=== PATIENT | female | born 1980 | race Caucasian/White ===

== ENCOUNTER 2016-08-28 15:54 | Inpatient (IN) | payer MEDICAID ==
--- NOTE | 2016-08-28 16:12 | CPEKG ---
Heart Rate: 94 RR Interval: 638 P-R Interval: 164 QRSD Interval: 68 QT Interval: 328 QTC Interval: 411 P [place]: 45 QRS [place]: -23 T Wave [place]: -5 EKG Severity - BORDERLINE ECG - EKG Impression: SINUS RHYTHM EKG Impression: BORDERLINE LEFT AXIS DEVIATION EKG Impression: INFERIOR Q WAVES, PROBABLY NORMAL VARIATION Electronically Signed By: Noemi Marie 29-Aug-2016 00:43:38
[2016-08-28] MEDS ORDERED: NS 500 ML IV ONE (16:29)
[2016-08-28] MEDS ORDERED: ALBUTEROL 3 ML DEYVIAL IH ONE (16:35)
[2016-08-28 16:43] LABS: % IMMATURE GRANULYOCYTES 0.3 % (0.0-1.1); ABSOLUTE IMMATURE GRANULOCYTES 0.02 10^3/uL (0.00-0.10); ADD DIFF? NO; ADD MORPH? NO; ADD SCAN? NO; ATYPICAL LYMPHOCYTE FLAG 10 (0-99); FRAGMENT RBC FLAG 0 (0-99); HEMATOCRIT 45.4 % (38.0-47.0); HEMOGLOBIN 15.1 g/dL (12.6-16.3); LEFT SHIFT FLG 0 (0-99); LIPEMIA HEMOLYSIS FLAG 80 (0-99); MEAN CELL HEMOGLOBIN 30.6 pg (27.9-34.1); MEAN CELL HEMOGLOBIN CONCENTR. 33.3 g/dL (32.4-36.7); MEAN CELL VOLUME 91.9 fL (81.5-99.8); MEAN PLATELET VOLUME 10.9 fL (8.7-11.7); PLATELET CLUMPS FLAG 0 (0-99); PLATELET COUNT 219 10^3/uL (150-400); RED BLOOD CELL COUNT 4.94 10^6/uL (4.18-5.33); RED CELL DISTRIBUTION WIDTH 12.3 % (11.5-15.2)
--- NOTE | 2016-08-28 16:52 | EDPHY ---
H & P Stated Complaint: started on clindamycin for tooth inf/r cp and hurts to swallow Time Seen by Provider: 08/28/16 16:02 HPI/ROS: CHIEF COMPLAINT: Chest discomfort HISTORY OF PRESENT ILLNESS: This is a 36-year-old female who reports that she has had persistent left-sided chest discomfort for the last 5 days. She states she had 2 teeth pulled 5 days ago and approximately 2 hours later, after taking her 1st dose of clindamycin, she developed right-sided chest discomfort. She describes it as a severe sharp stabbing pain. Hurts to take a deep breath. Hurts to swallow. She has had no fevers or chills. No cold, cough, nausea, vomiting. She does not feel short of breath. Pain does not radiate. Not made worse with exertion. No history of reflux or GERD. She did take some Maalox and Mylanta thinking this might be GI related with no improvement. No diabetes, hypertension, hypercholesterolemia. REVIEW OF SYSTEMS: Aside from elements discussed in the HPI, a comprehensive 10-point review of systems was reviewed and is negative. 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 The remote history of asthma. SOCIAL HISTORY: She is a smoker, half pack per day. VITAL SIGNS Reviewed by me. GENERAL: Overweight, pleasant, no respiratory distress. HEENT: Atraumatic. Eyes: No icterus, no injection. Mouth: Healing extraction site in the left upper jaw and right lower jaw. Moist mucous membranes. No erythema or lesions. Neck: supple with no adenopathy. LUNGS: Diminished breath sounds bilaterally. No wheezes, rhonchi or rales. CHEST: Area of tenderness to the right of the sternum. No rash. No crepitus. CARDIAC: Regular rate and rhythm, no rubs, murmurs or gallops. ABDOMEN: Soft, nontender, nondistended, bowel sounds normal. BACK: No CVA tenderness. EXTREMITIES: No trauma. No edema. Range of motion is normal throughout. NEURO: Alert and oriented, grossly nonfocal. SKIN: Warm and dry, no rash. PSYCHIATRIC: Normal mentation, no agitation. - Personal History LMP (Females 10-55): IUD In Place Current Tetanus/Diphtheria Vaccine: Yes - Medical/Surgical History Hx Asthma: Yes Hx Chronic Respiratory Disease: No Hx Diabetes: No Hx Cardiac Disease: No Hx Renal Disease: No Hx Cirrhosis: No Hx Alcoholism: No Hx HIV/AIDS: No Hx Splenectomy or Spleen Trauma: No Other PMH: migraines, kidney stones, hypothyroid,chronic back pain,questionable ols [place]'s - Social History Smoking Status: Current every day smoker Constitutional: Initial Vital Signs Temperature (C) 36.8 C 08/28/16 15:58 Heart Rate 97 08/28/16 15:58 Respiratory Rate 16 08/28/16 15:58 Blood Pressure 130/100 H 08/28/16 15:58 O2 Sat (%) 94 08/28/16 15:58 O2 Delivery Mode Nasal Cannula O2 (L/minute) 2 Allergies/Adverse Reactions: meperidine HCl [From Demerol] Allergy (Verified 08/28/16 15:56) naproxen Allergy (Verified 08/28/16 15:57) Home Medications: Medication Instructions Recorded Clindamycin 150 mg PO QID 08/28/16 Ibuprofen [Motrin (*)] 600 mg PO QID PRN 08/28/16 oxyCODONE/APAP 5/325 [Percocet 1 tab PO Q4 PRN 08/28/16 5/325 (*)] Medical Decision Making - Diagnostics EKG Interpretation: 12-LEAD EKG: Please see the full report in [facility]. My interpretation: Sinus rhythm, Q-waves inferiorly 3 and AVF. QRS complex across the precordium V1 to V3. No acute ischemic changes. Imaging: Imaging Impressions Chest X-Ray 08/28/16 16:29 Impression: Mild bronchitis. No other findings for acute cardiopulmonary abnormality. Chest/Thorax CTA 08/28/16 17:37 Impression: 1. No evidence of thrombopulmonary embolic disease. 2. Minimal bronchitis. Results called and discussed with Noemi Marie MD at 08/28/2016 18:52. ED Course/Re-evaluation: 36-year-old female presenting with chest discomfort which started 5 days ago. Pain is well localized to the right side of her chest. No radiation. No shortness of breath. Began after starting and clindamycin following a dental procedure. Evaluation in the emergency department demonstrated a negative troponin and minimally elevated D-dimer. EKG has no acute ischemic changes but does have a Q wave in the 3 and inverted T-wave in lead 3. Patient is allergic to Naprosyn, so Toradol was not administered. She did receive the prednisone as an anti-inflammatory. Patient received nebulizer treatment for diminished breath sounds. The patient reports little improvement with the albuterol neb, and no improvement with the morphine. She did receive Dilaudid. Chest x-ray independently reviewed by myself demonstrates no pneumonia, consistent with possible mild bronchitis. CT scan of the chest for pulmonary embolism was ordered. I discussed results with the radiologist and independently reviewed the images. No pulmonary embolism, no signs of inflammation in the mediastinum, no for explanation for the patient's pain. I discussed these results with the patient. She tells me her pain is worsening. She was given Motrin by mouth and a GI cocktail. Patient was again re-examined. She continues to report severe discomfort in the right anterior chest. There is no rash. She is also reporting that the pain is radiating into her right arm. She reports the GI cocktail helped her discomfort for 5 minutes but then it returned. Patient will be admitted for observation of her ongoing discomfort, serial troponins, and re-evaluation and treatment as needed. Course was discussed with Dr. Magdalena Callaway. Differential Diagnosis: After history and physical examination, the differential for chest pain was considered, including but not limited to, myocardial ischemia, acute coronary syndrome, pulmonary embolus, chest wall pain, pleural inflammation and pulmonary infectious causes. Consult/Admit Bed Type: Dr. Magdalena Callaway, [facility] - Data Points Laboratory Results: Laboratory Results 08/28/16 16:17 08/28/16 16:17 08/28/16 08/28/16 08/28/16 16:17 16:17 16:17 WBC RBC Hgb Hct MCV MCH MCHC RDW Plt Count MPV Neut % (Auto) Lymph % (Auto) [place] % (Auto) Eos % (Auto) Baso % (Auto) Nucleat RBC Rel Count Absolute Neuts (auto) Absolute Lymphs (auto) Absolute Monos (auto) Absolute Eos (auto) Absolute Basos (auto) Absolute Nucleated RBC Immature Gran % Immature Gran # D-Dimer 0.56 ug/mLFEU H ug/mLFEU (0.00-0.50) Sodium Potassium Chloride Carbon Dioxide Anion Gap BUN Creatinine Estimated GFR Glucose Hemoglobin A1c 5.9 % % (4.0-6.0) Estim Average Glucose 123 mg/dL mg/dL (68-126) Calcium Total Bilirubin Conjugated Bilirubin Unconjugated Bilirubin AST ALT Alkaline Phosphatase Troponin I Total Protein Albumin Triglycerides 142 mg/dL H mg/dL (35-135) Cholesterol 183 mg/dL mg/dL (140-200) Cholesterol Risk Factr 0.8 (0.2-1.0) LDL Cholesterol, Calc 105 mg/dL H mg/dL (70-100) LDL Risk Factor 0.8 (0.2-1.0) VLDL Cholesterol 28 mg/dL H mg/dL (8-25) Non-HDL Cholesterol 133 mg/dL H mg/dL (90-129) HDL Cholesterol 50 mg/dL mg/dL (40-80) LDL/HDL Ratio 2.10 RATIO RATIO (1.00-3.22) Cholesterol/HDL Ratio 3.66 RATIO RATIO (1.00-4.44) Lipase Beta HCG, Qual 08/28/16 08/28/16 08/28/16 16:17 16:17 16:17 WBC 7.68 10^3/uL 10^3/uL (3.80-9.50) RBC 4.94 10^6/uL 10^6/uL (4.18-5.33) Hgb 15.1 g/dL g/dL (12.6-16.3) Hct 45.4 % % (38.0-47.0) MCV 91.9 fL fL (81.5-99.8) MCH 30.6 pg pg (27.9-34.1) MCHC 33.3 g/dL g/dL (32.4-36.7) RDW 12.3 % % (11.5-15.2) Plt Count 219 10^3/uL 10^3/uL (150-400) MPV 10.9 fL fL (8.7-11.7) Neut % (Auto) 63.6 % % (39.3-74.2) Lymph % (Auto) 27.6 % % (15.0-45.0) [place] % (Auto) 6.5 % % (4.5-13.0) Eos % (Auto) 1.6 % % (0.6-7.6) Baso % (Auto) 0.4 % % (0.3-1.7) Nucleat RBC Rel Count 0.0 % % (0.0-0.2) Absolute Neuts (auto) 4.89 10^3/uL 10^3/uL (1.70-6.50) Absolute Lymphs (auto) 2.12 10^3/uL 10^3/uL (1.00-3.00) Absolute Monos (auto) 0.50 10^3/uL 10^3/uL (0.30-0.80) Absolute Eos (auto) 0.12 10^3/uL 10^3/uL (0.03-0.40) Absolute Basos (auto) 0.03 10^3/uL 10^3/uL (0.02-0.10) Absolute Nucleated RBC 0.00 10^3/uL 10^3/uL (0-0.01) Immature Gran % 0.3 % % (0.0-1.1) Immature Gran # 0.02 10^3/uL 10^3/uL (0.00-0.10) D-Dimer Sodium 139 mEq/L mEq/L (134-144) Potassium 4.1 mEq/L mEq/L (3.5-5.2) Chloride 100 mEq/L mEq/L (97-110) Carbon Dioxide 30 mEq/l mEq/l (22-31) Anion Gap 9 mEq/L mEq/L (8-16) BUN 12 mg/dL mg/dL (7-23) Creatinine 0.8 mg/dL mg/dL (0.6-1.0) Estimated GFR > 60 Glucose 127 mg/dL H mg/dL (70-100) Hemoglobin A1c Estim Average Glucose Calcium 9.3 mg/dL mg/dL (8.5-10.4) Total Bilirubin 0.5 mg/dL mg/dL (0.1-1.4) Conjugated Bilirubin 0.4 mg/dL mg/dL (0.0-0.5) Unconjugated Bilirubin 0.1 mg/dL mg/dL (0.0-1.1) AST 31 IU/L IU/L (14-46) ALT 48 IU/L IU/L (9-52) Alkaline Phosphatase 155 IU/L H IU/L (38-126) Troponin I < 0.012 ng/mL ng/mL (0-0.034) Total Protein 7.3 g/dL g/dL (6.3-8.2) Albumin 4.2 g/dL g/dL (3.5-5.0) Triglycerides Cholesterol Cholesterol Risk Factr LDL Cholesterol, Calc LDL Risk Factor VLDL Cholesterol Non-HDL Cholesterol HDL Cholesterol LDL/HDL Ratio Cholesterol/HDL Ratio Lipase 82.0 IU/L IU/L (23-300) Beta HCG, Qual NEGATIVE Medications Given: Discontinued Medications Al Hydroxide/Mg Hydroxide (Maalox Susp) 30 ml PO ONCE ONE Stop: 08/28/16 19:17 Last Admin: 08/28/16 19:34 Dose: 30 ml Albuterol (Proventil Neb) 3 ml IH EDNOW ONE Stop: 08/28/16 16:36 Last Admin: 08/28/16 16:59 Dose: 3 ml Hydromorphone HCl (Dilaudid) 1 mg IVP EDNOW ONE Stop: 08/28/16 17:21 Last Admin: 08/28/16 17:15 Dose: 1 mg Hydromorphone HCl (Dilaudid) 1 mg IVP EDNOW ONE Stop: 08/28/16 18:13 Last Admin: 08/28/16 18:12 Dose: 1 mg Hyoscyamine Sulfate (Levsin, Hyomax-Sl) 0.25 mg PO ONCE ONE Stop: 08/28/16 19:17 Last Admin: 08/28/16 19:34 Dose: 0.25 mg Sodium Chloride (Ns) 500 mls @ 0 mls/hr IV ONCE ONE PRN Reason: As Directed Stop: 08/28/16 16:30 Last Admin: 08/28/16 16:59 Dose: 500 mls Ibuprofen (Motrin) 600 mg PO EDNOW ONE Stop: 08/28/16 20:35 Last Admin: 08/28/16 20:58 Dose: 600 mg Lidocaine (Lidocaine 2% Viscous) 15 ml PO ONCE ONE Stop: 08/28/16 19:17 Last Admin: 08/28/16 19:34 Dose: 15 ml Morphine Sulfate (Morphine) 4 mg IVP EDNOW ONE Stop: 08/28/16 16:30 Last Admin: 08/28/16 16:59 Dose: 4 mg Pantoprazole Sodium (Protonix) 40 mg PO EDNOW ONE Stop: 08/28/16 19:17 Last Admin: 08/28/16 19:34 Dose: 40 mg Prednisone (Prednisone) 60 mg PO EDNOW ONE Stop: 08/28/16 17:12 Last Admin: 08/28/16 17:25 Dose: 60 mg Departure - Departure Disposition: [facility] Inpatient Acute Clinical Impression: Chest pain Qualifiers: Chest pain type: unspecified Qualified Code(s): R07.9 - Chest pain, unspecified Condition: Good
[2016-08-28 17:00] LABS: ALANINE AMINOTRANSFERASE 48 IU/L (9-52); ALBUMIN 4.2 g/dL (3.5-5.0); ALKALINE PHOSPHATASE 155 IU/L (38-126); ANION GAP 9 mEq/L (8-16); ASPARTATE AMINOTRANSFERASE 31 IU/L (14-46); BILIRUBIN,TOTAL 0.5 mg/dL (0.1-1.4); BILIRUBIN-CONJUGATED 0.4 mg/dL (0.0-0.5); BILIRUBIN-UNCONJUGATED 0.1 mg/dL (0.0-1.1); CALCIUM 9.3 mg/dL (8.5-10.4); CARBON DIOXIDE 30 mEq/l (22-31); CHLORIDE 100 mEq/L (97-110); CREATININE 0.8 mg/dL (0.6-1.0); GLOMERULAR FILTRATION RATE > 60; GLUCOSE 127 mg/dL (70-100); POTASSIUM 4.1 mEq/L (3.5-5.2); SODIUM 139 mEq/L (134-144); TOTAL PROTEIN 7.3 g/dL (6.3-8.2)
[2016-08-28] MEDS ORDERED: predniSONE 20 MG TAB PO ONE (17:11)
[2016-08-28 17:13] LABS: TROPONIN I < 0.012 ng/mL (0-0.034)
[2016-08-28] MEDS ORDERED: HYDROmorphONE/DILAUDID 1 MG/ML SYR ONE (17:16)
[2016-08-28] MEDS ORDERED: HYDROmorphONE/DILAUDID 1 MG/ML SYR IVP ONE ×2 (17:20→18:12)
[2016-08-28] MEDS ORDERED: IOPAMIDOL (ISOVUE 370) 100 ML BTL IV ONE (18:07)
[2016-08-28] MEDS ORDERED: MAG HYDROX/AL HYDROX/SIMETH 30 ML UDCUP PO ONE (19:16)
[2016-08-28] MEDS ORDERED: PANTOPRAZOLE SODIUM 40 MG TAB PO ONE (19:16)
[2016-08-28] MEDS ORDERED: LIDOCAINE 2% VISCOUS 15 ML UDCUP PO ONE (19:16)
[2016-08-28] MEDS ORDERED: HYOSCYAMINE SULFATE 0.125 MG TAB PO ONE (19:16)
[2016-08-28] MEDS ORDERED: IBUPROFEN 600 MG TAB PO ONE (20:34)
[2016-08-28] MEDS ORDERED: ONDANSETRON DISINTEGRATING 4 MG TAB PO PRN (21:50)
[2016-08-28] MEDS ORDERED: LORazepam 2 MG/ML INJ IVP PRN (21:50)
[2016-08-28] MEDS ORDERED: ALBUTEROL 3 ML DEYVIAL IH PRN (21:50)
[2016-08-28] MEDS ORDERED: HYDROmorphONE/DILAUDID 1 MG/ML SYR IVP PRN (21:50)
[2016-08-28] MEDS ORDERED: NITROGLYCERIN 0.4 MG BTL SL PRN (21:50)
[2016-08-28] MEDS ORDERED: ACETAMINOPHEN 325 MG TAB PO PRN (21:50)
[2016-08-28] MEDS ORDERED: ONDANSETRON 4 MG/2 ML VIAL IVP PRN (21:50)
[2016-08-28] MEDS ORDERED: IBUPROFEN 600 MG TAB PO PRN (21:53)
[2016-08-28] MEDS ORDERED: OXYCODONE/APAP 5/325 TAB PO PRN (21:53)
--- NOTE | 2016-08-28 22:40 | GHP ---
[f rep st] HISTORY AND PHYSICAL DATE OF ADMISSION: 08/28/2016 CHIEF COMPLAINT: Chest pain. HISTORY: This is a 36-year-old, morbidly obese female, who presents with chest pain that has been p resent for approximately 4 days. She notes that she had 2 teeth pulled last week and was placed on clindamycin for a dental infection associated with needing to pull these teeth, and shortly thereaft er developed substernal to slightly right-sided chest pain. She notes it has been present, essentia lly nonstop since Wednesday, but has significantly worsened over the last 24 hours. She notes the pain was initially intermittent, but has now become constant. She states it is severe and sharp. She h as never had similar symptoms in the past. It is not pleuritic in nature. It is not positional. I t does not seem to be associated with eating or drinking. She has not noted anything that is able t o make it better, including morphine and Dilaudid she was given in the emergency department. She jacobson s never had similar symptoms in the past, though she does admit that she has been seen previously in different ERs for chest pain. She does have some associated pain in her right arm as well, but gulshan t seems to have gone away for the most part. PAST MEDICAL HISTORY: 1. Morbid obesity. 2. Chronic back pain. 3. Migraine headaches. 4. Kidney stones. 5. Reactive airway disease. 6. Some sort of peripheral neuropathy that she states has been worked up for various things, such a s MS and Kt disease, but testing has been negative. PAST SURGICAL HISTORY: Includes: 1. x2. 2. Tonsillectomy. FAMILY HISTORY: She has 2 great-grandfathers who have had heart disease and a grandfather of c ancer. Otherwise, diabetes and high blood pressure run in the family. SOCIAL HISTORY: Patient is a current daily smoker. She works in home care. She has 2 children. S he denies significant alcohol use and no drug use. REVIEW OF SYSTEMS: 10-point review of systems obtained, negative except as per HPI. MEDICATIONS: Include: 1. Ibuprofen. 2. Percocet. 3. Clindamycin. ALLERGIES: Include: 1. Meperidine. 2. Naproxen. PHYSICAL EXAMINATION: VITAL SIGNS: BP 110/62, heart rate 94, respiratory rate 18, O2 sats 98% on r oom air, temperature is 37.1. GENERAL APPEARANCE: This is a morbidly obese, female. She is awake and alert. She is in no acute distress. EYES: Anicteric. HEENT: Oropharynx clear. CA RDIOVASCULAR: RRR, no MRG. PULMONARY: CTA bilaterally, normal work of breathing. ABDOMEN: Soft, nontender, nondistended. EXTREMITIES: No clubbing, cyanosis, or edema. SKIN: Warm, dry. Well p erfused. NEURO/PSYCH: Oriented and appropriate, pleasant. CLINICAL DATA: Labs reviewed and are remarkable for a D-dimer of 0.56, glucose of 127. Troponins n egative. Chest x-ray reviewed and interpreted independently by myself shows mild bronchitis without other acu te abnormalities. Chest/thorax CT angiogram shows no PE and minimal bronchitis. EKG reviewed and interpreted independently by myself showing sinus rhythm, borderline left axis marty ation, and inferior Q-waves. ASSESSMENT/PLAN: This is a 36-year-old female, presenting with chest pain that is atypical and has been present for 5 days. 1. Chest pain. Again, this is atypical right-sided chest pain, present for 4-5 days with negative troponin x2. Pain continues despite aggressive management in the emergency department. At this poi nt, plan will be for overnight observation, monitoring on telemetry with serial EKGs and troponins, and a stress test in the morning. Other potential etiologies include musculoskeletal versus gastroe sophageal reflux disease, but she did not respond to GI cocktail or antiinflammatories. She has bee n given an aspirin. She will have a lipid panel and A1c checked for the risk stratification. 2. Morbid obesity. Recommending lifestyle changes. She has been working with her primary care vianca keen to get her weight under better control. 3. Hyperglycemia. We will check hemoglobin A1c. Her last glucose check 1 year ago was within norm al limits. 4. Hypertension. The patient's blood pressure has been mildly elevated since arrival, but this is in the setting of acute pain and suspect this is related to the same. We will monitor for now. 5. Reactive airway disease without evidence of acute exacerbation. We will monitor and give p.r.n. albuterol. 6. Observation status. I suspect she will need less than a 48-hour stay for evaluation and managem ent of above. 7. Patient is new to my care. Old records reviewed and summarized as per HPI and Past Medical Hist ory. Care plan reviewed with ER physician, including plans for stress test in the morning. /[id number]/MODL
[2016-08-28 22:57] LABS: HEMOGLOBIN A1C 5.9 % (4.0-6.0)
[2016-08-28 23:02] LABS: CHOLESTEROL 183 mg/dL (140-200); CHOLESTEROL/HDL RATIO 3.66 RATIO (1.00-4.44); HIGH DENSITY LIPOPROTEIN 50 mg/dL (40-80); LOW DENSITY LIPOPROTEIN 105 mg/dL (70-100); NON-HIGH DENSITY LIPOPROTEIN 133 mg/dL (90-129); TRIGLYCERIDE 142 mg/dL (35-135); VERY LOW DENSITY LIPOPROTEINS 28 mg/dL (8-25)
[2016-08-28] MEDS: AMOXICILLIN/CLAVULANATE POT 875/125 MG TAB PO SCH (23:08)
[2016-08-28] MEDS: oxyCODONE IR 5 MG TAB PO PRN (23:09)
[2016-08-28] MEDS: ZOLPIDEM TARTRATE 5 MG TAB PO PRN (23:09)
[2016-08-29] MEDS: LORazepam 0.5 MG TAB PO PRN ×3 (01:07→19:31)
--- NOTE | 2016-08-29 08:21 | CPEKG ---
Heart Rate: 84 RR Interval: 714 P-R Interval: 164 QRSD Interval: 78 QT Interval: 376 QTC Interval: 445 P [place]: 53 QRS [place]: -16 T Wave [place]: -5 EKG Severity - BORDERLINE ECG - EKG Impression: SINUS RHYTHM EKG Impression: BORDERLINE LEFT AXIS DEVIATION EKG Impression: INFERIOR Q WAVES, PROBABLY NORMAL VARIATION EKG Impression: BORDERLINE T ABNORMALITIES, ANTERIOR LEADS Electronically Signed By: Sherman Reyes 29-Aug-2016 21:16:25
[2016-08-29] MEDS: KETOROLAC 30 MG/1 ML SDV IVP PRN ×3 (08:25→20:39)
[2016-08-29] MEDS: AMOXICILLIN/CLAVULANATE POT 875/125 MG TAB PO SCH ×2 (08:26→20:38)
[2016-08-29] MEDS: ASPIRIN 325 MG TAB PO SCH (08:26)
[2016-08-29] MEDS: oxyCODONE IR 5 MG TAB PO PRN ×3 (08:26→19:31)
[2016-08-29] MEDS: ENOXAPARIN 40 MG/0.4 ML SYR SC SCH (08:29)
[2016-08-29] MEDS ORDERED: REGADENOSON 0.4 MG/5 ML SYR IVP ONE (10:30)
--- NOTE | 2016-08-29 11:36 | CPR ---
[f rep st] NONINVASIVE CARDIAC PROCEDURE REPORT Lexiscan Injection of Lexiscan MPI study. SUPERVISING [employer] DEVELOPER: Amy Enriquez MD INDICATION FOR PROCEDURE: Chest pressure, abnormal EKG. Patient unable to roll walk on treadmill. PRE: After obtaining informed consent and ensuring patient's n.p.o. status of caffeine for greater than 12 hours, the patient was placed on an electrocardiogram. Initial EKG shows sinus rhythm, Q-wa ves noted in lead III, V2, and V1. Inverted T-waves in lead III. Patient denies any chest pain or pressure. Initial blood pressure of 142/80, saturating 98%. INJECTION: Patient was injected with Lexiscan followed by nuclear isotope. Patient reporting withi n 2-3 minutes of injection mild shortness of breath; no chest pressure or pain. Heart rate did incr ease up to 112 BPM, but no significant EKG changes. Within 5 minutes post injection, patient report ed symptoms all subsided. Blood pressure remained stable, vital signs stable,and again no significa nt EKG changes. IMPRESSION: A 36-year-old female with ongoing chest pressure, and an abnormal electrocardiogram, be ing evaluated for ischemia. She is unable to run on treadmill. Undergone Lexiscan MPI study with n o significant EKG changes with injection. Patient's vital signs are stable. [facility] finish poststress imaging. /[id number]/MODL
--- NOTE | 2016-08-29 15:14 | HOSPPROG ---
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 case d/w dr jurado Objective: Vital Signs Temp Pulse Resp BP Pulse Ox 36.6 C 83 20 140/98 H 97 08/29/16 12:00 08/29/16 12:00 08/29/16 12:00 08/29/16 12:00 08/29/16 12:00 08/28/16 08/29/16 08/30/16 05:59 05:59 05:59 Intake Total 990 Balance 990 - Physical Exam Constitutional: no apparent distress, appears nourished Eyes: PERRL, anicteric sclera Ears, Nose, Mouth, Throat: moist mucous membranes, hearing normal Cardiovascular: regular rate and rhythym, no murmur, rub, or gallop Respiratory: no respiratory distress, no rales or rhonchi Gastrointestinal: normoactive bowel sounds, soft, non-tender abdomen Genitourinary: No rodas in urethra Skin: warm, normal color Musculoskeletal: full muscle strength, no muscle tenderness Neurologic: AAOx3 ICD10 Worksheet Patient Problems: Problems Problem Status Onset Chest pain Acute
[2016-08-29] MEDS: ZOLPIDEM TARTRATE 5 MG TAB PO PRN (20:52)
[2016-08-30 08:16] VITALS: BP 130/77; RESP 17; TEMP 98.1
[2016-08-30] MEDS: KETOROLAC 30 MG/1 ML SDV IVP PRN (08:47)
[2016-08-30] MEDS: AMOXICILLIN/CLAVULANATE POT 875/125 MG TAB PO SCH (10:55)
[2016-08-30] MEDS: ENOXAPARIN 40 MG/0.4 ML SYR SC SCH (10:55)
[2016-08-30] MEDS: ASPIRIN 325 MG TAB PO SCH (10:55)
[2016-08-30] MEDS: oxyCODONE IR 5 MG TAB PO PRN ×2 (10:57→14:21)
--- NOTE | 2016-08-30 12:40 | HOSPPROG ---
Hospitalist Progress Note Assessment/Plan: 36 yo F w recent denatl work admitted w cp cp: neg ekg portion neg rest images ?esophagitis: constant and worse when supine ekg not c/w pericarditis (interp by me) add ppi proph: add lmwh recent tooth extraction: continue augmentin dispo: home today Subjective: neg stress Objective: Vital Signs Temp Pulse Resp BP Pulse Ox 36.7 C 70 17 130/77 H 97 08/30/16 08:00 08/30/16 08:00 08/30/16 08:00 08/30/16 08:00 08/30/16 08:00 08/29/16 08/30/16 08/31/16 05:59 05:59 05:59 Intake Total 2069 Balance 2069 - Physical Exam Constitutional: no apparent distress, appears nourished Eyes: PERRL, anicteric sclera Ears, Nose, Mouth, Throat: moist mucous membranes, hearing normal Cardiovascular: regular rate and rhythym, no murmur, rub, or gallop Respiratory: no respiratory distress, no rales or rhonchi Gastrointestinal: normoactive bowel sounds, soft, non-tender abdomen Genitourinary: No rodas in urethra Skin: warm, normal color Musculoskeletal: full muscle strength, no muscle tenderness Neurologic: AAOx3 ICD10 Worksheet Patient Problems: Problems Problem Status Onset Chest pain Acute
--- NOTE | 2016-08-30 14:28 | GDS ---
[f rep st] DISCHARGE SUMMARY DISCHARGE DIAGNOSES: 1. Atypical chest pain. 2. Recent tooth extraction. 3. Suspected esophagitis versus gastritis. HOSPITAL COURSE: Please see admission history and physical by Dr. Magdalena Callaway. The patient pre sented on the evening of the with chest pain. She had a recent tooth extraction. She had a CTA of her chest showing no evidence of pulmonary embolism and no other abnormalities, including normal thoracic aorta. No aortic dissection. She had nonischemic EKG, serially negative troponins. Her initial stress images showed some inferior hypoperfusion. This was felt consistent with possible ar tifact, given her size. Repeat studies showed no perfusion deficits. Her EKG was not consistent wi th pericarditis. She was given a GI cocktail with no change. On the day of discharge, the patient is complaining of feeling worse, but it sounds like mostly just in terms of feeling nauseated with s ome chest burning. I think this consistent gastroenteritis. She was given a prescription for a pro ton pump inhibitor and a GI cocktail. /[id number]/MODL
[2016-08-30 14:58] VITALS: PULSE 72; O2SAT 95
[2016-08-30] MEDS ORDERED: ENOXAPARIN 40 MG/0.4 ML SYR SC SCH (21:00)
--- NOTE | 2016-09-01 11:25 | CPEKG ---
Heart Rate: 80 RR Interval: 750 P-R Interval: 160 QRSD Interval: 70 QT Interval: 364 QTC Interval: 420 P [place]: 60 QRS [place]: -10 T Wave [place]: 7 EKG Severity - BORDERLINE ECG - EKG Impression: SINUS RHYTHM EKG Impression: INFERIOR Q WAVES, PROBABLY NORMAL VARIATION EKG Impression: BORDERLINE T ABNORMALITIES, ANTERIOR LEADS Electronically Signed By: Sherman Reyes 01-Sep-2016 12:45:25
== END 2016-08-30 14:44 | disposition home or self-care (01) | DRG 313 ==
LOC: SUPCPDRO 15:54 → F2W 21:40 → OBSVTOIN 08-29 15:14
PROVIDERS: ADMIT Internal Medicine; ATTEND Internal Medicine
DX: R07.89 Other chest pain (principal); K52.9 Noninfective gastroenteritis and colitis, unspecified; R73.9 Hyperglycemia, unspecified; E03.9 Hypothyroidism, unspecified; E66.01 Morbid (severe) obesity due to excess calories; I10 Essential (primary) hypertension; F17.210 Nicotine dependence, cigarettes, uncomplicated; J45.909 Unspecified asthma, uncomplicated; Z87.442 Personal history of urinary calculi
CPT/HCPCS: 96374; A9500; G0378; J1170; J1650; J1885; J2405; J2785; Q9967

== ENCOUNTER → 2016-09-01 | Outpatient (CLI) | payer MEDICAID | LOC: FIMAGING 11:57 | PROVIDERS: ATTEND Family Medicine | DX: M54.5 Low back pain (principal); M51.37 Other intervertebral disc degeneration, lumbosacral region ==

== ENCOUNTER → 2017-08-04 | Outpatient (CLI) | payer MEDICAID | LOC: CIMAGING 13:11 | PROVIDERS: ATTEND Family Medicine | DX: K76.0 Fatty (change of) liver, not elsewhere classified (principal); R91.1 Solitary pulmonary nodule; Z97.5 Presence of (intrauterine) contraceptive device | CPT/HCPCS: 74176-PO ==

== ENCOUNTER → 2018-07-18 | Outpatient (CLI) | payer MEDICAID | LOC: BRMIMAGING 09:30 | PROVIDERS: ATTEND Family Medicine | DX: R92.8 Other abnormal and inconclusive findings on diagnostic imaging of breast (principal) | CPT/HCPCS: 76641-PO ==